=== PATIENT | male | born 1965 | race Caucasian/White ===

== ENCOUNTER → 2018-12-06 | Day surgery (SDC) | payer BC ==
[~2018-12-06] MED LIST: Lactated Ringers 1,000 ML IV SCH; Propofol 200 MG/20 ML SDV IV ONE; Sodium Chloride 0.9% 1,000 ML IV SCH
--- NOTE | 2018-12-06 12:54 | OR ---
DATE OF OPERATION: 12/06/2018 PREOPERATIVE DIAGNOSIS: SCREENING COLONOSCOPY. POSTOPERATIVE DIAGNOSIS: SCREENING COLONOSCOPY. SURGEON: Tristan Phillips MD PROCEDURE: FULL-LENGTH COLONOSCOPY WITH SNARE POLYPECTOMY X1. ANESTHESIA: MAC via [employer]. COMPLICATIONS: None. SPECIMEN: Small tubular adenoma, cecum. FINDINGS: 1. Full-length colonoscopy. 2. A 4 to 5 mm tubular adenoma in cecum. RECOMMENDATIONS: Recommend a 5-year followup colonoscopy. INDICATIONS: The patient was in for a routine physical. He has never had any prior colonoscopy screening. He agreed to screening colonoscopy. DESCRIPTION OF PROCEDURE: The patient was prepped and draped, placed in the left lateral decubitus position. A lubricated Olympus colonoscope was inserted and easily advanced to the cecum. Direct visualization of the ileocecal valve and appendiceal orifice was accomplished. The bowel prep was adequate. Just outside the cecal pouch, the patient had a small stalked 3 to 4 mm tubular adenoma easily removed with a snare and suctioned into polyp trap #1. The rest of the ascending, transverse, and descending colons were completely benign. Throughout the sigmoid and rectosigmoid junction, I found no polyps, mass, ulceration, or bleeding sites. No vascular abnormalities or signs of colitis. There were no diverticula. The rectal vault was benign. Retroflexion of the scope in the rectum showed no anal lesions. Air was suctioned, scope removed without complication. MACARIO/ZAY /[id number]
== END ==
LOC: CC.SDS 10:49
PROVIDERS: ATTEND Family Medicine
DX: Z12.11 Encounter for screening for malignant neoplasm of colon (principal); K51.40 Inflammatory polyps of colon without complications; E78.5 Hyperlipidemia, unspecified; I10 Essential (primary) hypertension; R05 Cough; T46.4X5A Adverse effect of angiotensin-converting-enzyme inhibitors, initial encounter; Z79.899 Other long term (current) drug therapy
CPT/HCPCS: 45385; J2704; J7120

== ENCOUNTER 2024-04-25 11:19 | Day surgery (SDC) | payer BC ==
[2024-04-25] MEDS: Lactated Ringers 1,000 ML IV SCH (12:04)
[2024-04-25] MEDS ORDERED: fentaNYL 50 MCG/ML SDV ONE ×2 (12:30)
[2024-04-25] MEDS ORDERED: Phenylephrine 1% 10 MG/ML SDV ONE (12:30)
[2024-04-25] MEDS ORDERED: Ketamine 200 MG/20 ML MDV ONE (12:30)
[2024-04-25] MEDS ORDERED: Propofol 200 MG/20 ML SDV ONE ×2 (12:30)
== END 2024-04-25 13:35 | disposition home or self-care (01) ==
LOC: CC.SDS 11:19
PROVIDERS: ATTEND Family Medicine
DX: Z12.11 Encounter for screening for malignant neoplasm of colon (principal); D12.5 Benign neoplasm of sigmoid colon; D12.7 Benign neoplasm of rectosigmoid junction; K62.1 Rectal polyp; I10 Essential (primary) hypertension; E78.5 Hyperlipidemia, unspecified; N40.0 Benign prostatic hyperplasia without lower urinary tract symptoms; Z79.899 Other long term (current) drug therapy; Z86.0100 Personal history of colon polyps, unspecified
CPT/HCPCS: 00811; J2371; J2704; J3010; J3490; J7120